=== PATIENT | female | born 1945 | race Caucasian/White ===

== ENCOUNTER 2017-01-15 13:01 | Day surgery (SDC) | payer MEDICARE, OTHER ==
[~2017-01-15 13:01] MED LIST: DEXTROSE 5%-1/2 NORMAL SALINE 1,000 ML IV PRN
[2017-01-15] MEDS ORDERED: COLLAGENASE CLOSTRIDIUM HIST. OINT 30 GM ONE (13:03)
[2017-01-15] MEDS ORDERED: BUPIVACAINE HCL 0.25 % INJ/PF (2.5 MG/1 ML) 30 ML VIAL ONE (13:03)
[2017-01-15] MEDS ORDERED: LIDOCAINE 0.5% INJ-PF (5 MG/ML) 50 ML SDV ONE (13:03)
[2017-01-15] MEDS ORDERED: SILVER SULFADIAZINE 1% CREAM 25 GM ONE (13:03)
[2017-01-15] MEDS ORDERED: BACITRACIN INJ 50,000 UNIT VIAL ONE (13:03)
[2017-01-15 13:59] LABS: HEMATOCRIT 41.7 % (36.0-47.0); HEMOGLOBIN 14.4 g/dL (12.0-15.5); HGB HCT DIFFERENCE 1.5; MEAN CORPUSCULAR HEMOGLOBIN 35.3 pg (27.0-33.4); MEAN CORPUSCULAR HGB CONC 34.6 g/dL (32.0-36.0); MEAN CORPUSCULAR VOLUME 102 fl (80-97); RED BLOOD COUNT 4.09 10^6/uL (3.72-5.28); RED CELL DISTRIBUTION WIDTH 13.1 % (11.5-14.0); WHITE BLOOD COUNT 6.3 10^3/uL (4.0-10.5)
[2017-01-15 15:01] LABS: ANION GAP 11 (5-19); BLOOD UREA NITROGEN 7 mg/dL (7-20); CALCIUM 10.1 mg/dL (8.4-10.2); CARBON DIOXIDE 25 mmol/L (22-30); CHLORIDE 101 mmol/L (98-107); CREATININE RESULT 0.74 mg/dL (0.52-1.25); GLUCOSE 101 mg/dL (75-110); POTASSIUM 5.4 mmol/L (3.6-5.0)
[2017-01-15] MEDS ORDERED: FENTANYL CITRATE INJ/PF 100 MCG/2 ML AMPUL ONE (16:07)
[2017-01-15] MEDS ORDERED: MIDAZOLAM 2 MG/2 ML INJ ONE (16:07)
[2017-01-15] MEDS ORDERED: LIDOCAINE 2% INJ-PF (20 MG/ML) 10 ML AMPUL ONE (16:07)
[2017-01-15] MEDS ORDERED: PROPOFOL INJ 200 MG/20 ML VIAL IV ONE (16:08)
[2017-01-15] MEDS ORDERED: IBUPROFEN INJ 800 MG/8 ML VIAL IV ONE (16:08)
[2017-01-15] MEDS ORDERED: ONDANSETRON HCL INJ/PF 4 MG/2 ML SDV IV PRN (18:39)
[2017-01-15] MEDS ORDERED: MORPHINE SULFATE 10 MG/ML INJ IV PRN (18:39)
[2017-01-15] MEDS ORDERED: OXYCODONE-ACETAMINOPHEN 5-325 MG TABLET PO PRN ×2 (18:39)
[2017-01-15] MEDS ORDERED: PROMETHAZINE HCL INJ 25 MG/1 ML VIAL IV PRN ×2 (18:39)
[2017-01-15] MEDS ORDERED: DIPHENHYDRAMINE HCL 50 MG/ML VIAL IV PRN (18:39)
[2017-01-15] MEDS ORDERED: FENTANYL CITRATE INJ/PF 100 MCG/2 ML AMPUL IV PRN ×3 (18:39)
[2017-01-15] MEDS ORDERED: MEPERIDINE HCL/PF INJ 25 MG/1 ML DISP.SYRIN IV PRN (18:39)
--- NOTE | 2017-01-15 19:02 | PDOC DISCHARGE SUMMARY ---
Discharge Summary (SDC) - Discharge Final Diagnosis: Right subcutaneous axillary abscess Date of Surgery: 01/15/17 Condition: Fair Treatment or Instructions: Discharge home [after recovery per ASU criteria]. Diet , as tolerated, when fully awake advance as tolerated. Activities within moderation encouraged. Meds per med rec. Prescription for Percocet. In 48 hours may remove dressings, shower the right axilla and replaced with dry gauze. May repeat daily. Follow up in my office by appointment in about [1 week]. Call for appointment. Wound care as above. Hold of on school/work [until evaluation in office]. May shower [in 48 hrs], [try to keep operated area as dry as possible]. Referrals: SHANE NAIR MD [Primary Care Provider] - Discharge Diet: As Tolerated Respiratory Treatments at Home: Deep Breathing/Coughing Discharge Activity: Activity As Tolerated Report the Following to Your Physician Immediately: Unusual Bleeding
--- NOTE | 2017-01-15 19:04 | Operative Report ---
Operative Report DATE OF SURGERY: 01/15/17 PREOPERATIVE DIAGNOSIS: Right axillary subcutaneous abscess. POSTOPERATIVE DIAGNOSIS: Right axillary subcutaneous abscess. OPERATION: Debridement of right axillary abscess. SURGEON: YULISA CERVANTES [facility] PROFESSOR: None ANESTHESIA: LMAC TISSUE REMOVED OR ALTERED: Skin, subcutaneous tissue and scarred abscess. COMPLICATIONS: None ESTIMATED BLOOD LOSS: 5 mL. INTRAOPERATIVE FINDINGS: Of a subcutaneous scar and abscess about 5 cm across. A subciliary area about 2 cm was dressed as well. No actual purulence. PROCEDURE: PROCEDURE: The right axilla]was prepared with [Betadine] and draped out with sterile linen. After the"universal time-out", in which it was confirmed that the patient [did receive antibiotic], the procedure commenced. The patient was appropriately anesthetized. The wound was probed. The wound was debrided of non viable tissue using[ cautery with removal of loose debris, as well. The wound was irrigated with [ Peroxide] The wound was now irrigated with saline and [Surgicel] placed within it, dressed with [Kerlix] and the procedure concluded.
--- NOTE | 2017-01-15 19:29 | EKG REPORT ---
SEVERITY:- BORDERLINE ECG - SINUS TACHYCARDIA BORDERLINE LEFT AXIS DEVIATION BORDERLINE R WAVE PROGRESSION, ANTERIOR LEADS : Confirmed by: Zaid Herrera MD 15-Jan-2017 19:28:13
[2017-01-15 21:23] VITALS: BP 142/72
[2017-01-16] MEDS ORDERED: LIDOCAINE 0.5% INJ-PF (5 MG/ML) 50 ML SDV SUBCUT PRN (05:00)
[2017-01-16] MEDS ORDERED: LACTATED RINGERS 1000 ML IV PRN (05:00)
== END 2017-01-15 21:37 | disposition home or self-care (01) ==
LOC: OROUT 13:01 → 4S 13:01 → OROUT 21:37
PROVIDERS: ATTEND Surgery
PROC: 0JBF0ZZ Excision of Left Upper Arm Subcutaneous Tissue and Fascia, Open Approach (ICD-10-PCS; principal; 2017-01-15 15:00)
DX: L02.411 Cutaneous abscess of right axilla (principal); F17.210 Nicotine dependence, cigarettes, uncomplicated; Z79.899 Other long term (current) drug therapy; Z88.0 Allergy status to penicillin; Z88.6 Allergy status to analgesic agent
CPT/HCPCS: 36415; 85027; 80048; 88305 ×2; 93005; 93010; 11042; J2250; J3490 ×3; J3010; J2704; J1741; 400